=== PATIENT | female | born 1950 | race Caucasian/White ===

== ENCOUNTER 2020-10-02 06:57 | Observation (INO) ==
[~2020-10-02 06:57] MED LIST: Buffered Lidocaine 1% SYRIN 1 ml INTRADERM ONE; Lactated Ringers 1000 ml BAG 1,000 ML IV SCH
[2020-10-02] MEDS ORDERED: Buffered Lidocaine 1% SYRIN 1 ml INTRADERM ONE (07:36)
[2020-10-02] MEDS ORDERED: Lidocaine 2.5%/Prilocain 2.5% 5 GM TUBE ONE (07:37)
[2020-10-02] MEDS ORDERED: ceFAZolin 2 GM PREMIX 2 GM/50 ML BAG ONE (10:01)
[2020-10-02] MEDS ORDERED: Heparin 5000 UNITS/ML 1 mL VIAL ONE (10:01)
[2020-10-02] MEDS ORDERED: Midazolam 2 mg/2 ml VIAL 1 mg/ml 2 ml VIAL (2 mg) ONE ×2 (13:18→16:00)
[2020-10-02] MEDS ORDERED: Lidocaine 2% PF 5 ML VIAL ONE ×2 (13:18→15:58)
[2020-10-02] MEDS ORDERED: Propofol 10 MG/ML 20 ML BTL ONE ×3 (13:18→15:57)
[2020-10-02] MEDS ORDERED: fentaNYL 250 mcg/5 ml 50 MCG/ML 5 ml VIAL (250 MCG) ONE ×2 (13:18→16:00)
[2020-10-02] MEDS ORDERED: Rocuronium 50 mg VIAL 10 mg/ml 5 ml VIAL (50 mg) ONE ×2 (13:18→18:37)
[2020-10-02] MEDS ORDERED: Dexamethasone IV 4 MG/ML VIAL 1 ml VIAL IV SLOW PU ONE (15:31)
[2020-10-02] MEDS ORDERED: HYDROcodone/ACETAMIN 5/325 mg TAB PO PRN (15:32)
[2020-10-02] MEDS ORDERED: oxyCODONE/Acetamin 5/325 mg TAB PO PRN ×2 (15:32→23:24)
[2020-10-02] MEDS ORDERED: Naloxone 0.4 mg VIAL 0.4 mg/ml 1 ml VIAL IV PRN ×2 (15:32→19:24)
[2020-10-02] MEDS ORDERED: Prochlorperazine 5 mg/ml 2 ml VIAL (10 mg) IV PRN (15:32)
[2020-10-02] MEDS ORDERED: fentaNYL 100 mcg/2 ml 50 MCG/ML VIAL IV PRN ×2 (15:32→19:24)
[2020-10-02] MEDS ORDERED: Famotidine IV 10 MG/ML 2 ml VIAL (20 mg) IV SLOW PU ONE (15:32)
[2020-10-02] MEDS ORDERED: Morphine 4 MG/ML VIAL (1 ml) IV PRN (15:32)
[2020-10-02] MEDS ORDERED: Famotidine IV 10 MG/ML 2 ml VIAL (20 mg) ONE (15:38)
[2020-10-02] MEDS ORDERED: Dexamethasone IV 4 MG/ML VIAL 1 ml VIAL ONE (15:38)
[2020-10-02] MEDS ORDERED: Ondansetron 4 mg VIAL 2 MG/ML 2 ml VIAL ONE ×2 (15:57→22:17)
[2020-10-02] MEDS ORDERED: Bupivacaine 0.5% 50 ML MDV VIAL ONE (18:26)
[2020-10-02] MEDS ORDERED: ISOSULFAN BLUE 1% 5 ML VIAL 10 MG/ML SUBCUT ONE (18:26)
[2020-10-02] MEDS ORDERED: HYDROmorphone 1 MG/1 ML SYRINGE IV PRN (19:24)
[2020-10-02] MEDS ORDERED: Ondansetron 4 mg VIAL 2 MG/ML 2 ml VIAL IV PRN ×2 (19:24→23:24)
[2020-10-02] MEDS ORDERED: HYDROmorphone 1 MG/1 ML SYRINGE ONE (19:56)
[2020-10-02] MEDS ORDERED: EPHEDrine (Pressors) 50 MG/ML VIAL ONE (20:51)
[2020-10-02] MEDS ORDERED: Prochlorperazine 5 mg/ml 2 ml VIAL (10 mg) ONE (22:49)
[2020-10-02] MEDS ORDERED: Lactated Ringers 1000 ml BAG 1,000 ML IV SCH (23:45)
[2020-10-03] MEDS ORDERED: Prochlorperazine 5 mg/ml 2 ml VIAL (10 mg) IV PRN (09:33)
[2020-10-03 15:51] VITALS: BP 148/67
== END 2020-10-03 15:15 | disposition home or self-care (01) ==
LOC: SSU 06:57 → OR 06:57
PROVIDERS: ADMIT Student in an Organized Health Care Education/Training Program; ATTEND Student in an Organized Health Care Education/Training Program